=== PATIENT | female | born 1975 | race Caucasian/White ===

== ENCOUNTER 2017-01-23 03:10 | Emergency (ER) | payer MEDICARE, OTHER ==
[~2017-01-23] VITALS: Ht 157.5 cm; Wt 76.0 kg
[2017-01-23 03:15] VITALS: Ht 157.5 cm; Wt 76.0 kg
[2017-01-23] MEDS ORDERED: predniSONE 20 MG TAB PO ONE (04:00)
[2017-01-23] MEDS ORDERED: DIPHENHYDRAMINE 50 MG INJ IM ONE (04:00)
[2017-01-23] MEDS ORDERED: PRED20TA PO (04:10)
[2017-01-23] MEDS ORDERED: BEN25 PO (04:10)
[2017-01-23] MEDS ORDERED: FAMO-96 PO (04:10)
[2017-01-23 04:19] VITALS: BP 121/77; PULSE 66; RESP 20; TEMP 98.3
--- NOTE | 2017-01-23 05:06 | ERD ---
ER Documentation Chief Complaint Date/Time DATE: 01/23/17 TIME: 05:04 Chief Complaint itchy all over no rash after taking laxative HPI 41-year-old female comes with generalized body pruritus that started earlier tonight 3 hours after taking a laxative. She complains of constipation, she took 2 doses of the medication she does not recall the name of and began having itching all over. She states that she denies she did not take anything else new , no new foods, creams, lotions, detergents. She has no trouble swallowing, voice changes or drooling. Patient denies chest pain or shortness of breath. ROS All systems reviewed and are negative except as per history of present illness. Medications Home Meds Active Scripts Diphenhydramine Hcl* (Benadryl*) 25 Mg Cap, 25 MG PO Q6, #30 CAP Prov:HANNAH HOU PA-C 01/23/17 Famotidine* (Pepcid*) 20 Mg Tablet, 20 MG PO BID for 4 Days, TAB Prov:HANNAH HOU PA-C 01/23/17 Prednisone* (Prednisone*) 20 Mg Tab, 40 MG PO DAILY for 4 Days, TAB Prov:HANNAH HOU PA-C 01/23/17 PMhx/Soc History of Surgery: No Hx Neurological Disorder: No Hx Respiratory Disorders: No Hx Cardiac Disorders: No Hx Psychiatric Problems: No Hx Alcohol Use: No Hx Substance Use: No Hx Tobacco Use: No Smoking Status: Never smoker Physical Exam Vitals Vital Signs Date Time Temp Pulse Resp B/P Pulse Ox O2 Delivery O2 Flow Rate FiO2 01/23/17 04:19 98.3 66 20 121/77 97 01/23/17 03:15 98.3 78 20 110/82 97 Physical Exam General: Well-developed, well-nourished. The patient appears in no acute distress. HEENT: Head is normocephalic, atraumatic. No scleral icterus. No angioedema neck: Supple. Nontender. Lungs: Clear to auscultation. Normal air movement. Heart: Regular rate and rhythm. S1 and S2 are normal. No murmurs, gallops, or rubs. Abdomen: Soft, nontender, nondistended. Bowel sounds are normoactive. Extremities: No clubbing or cyanosis. Normal pulses. Moving extremities x 4. No weakness. Neurologic: Alert and oriented 3. No focal deficits. Skin: Normal turgor. No rash or lesions. Results 24 hrs Current Medications Medications (Trade) Dose Ordered Sig/Queta Route PRN Reason Start Time Stop Time Status Last Admin Dose Admin Prednisone (Prednisone) 40 mg ONCE ONCE PO 01/23/17 04:00 01/23/17 04:01 DC 01/23/17 04:11 Diphenhydramine HCl (Benadryl) 25 mg ONCE ONCE IM 01/23/17 04:00 01/23/17 04:01 DC 01/23/17 04:13 Procedures/MDM ED course: Patient was given Benadryl 25 mg IM, prednisone was given orally. Medical decision makin-year-old female presents with generalized pruritus, most consistent with an allergic reaction that is mild. She does not have evidence of urticaria, angioedema, respiratory symptoms or any airway obstructive process. She is stable for outpatient management. Departure Diagnosis: Primary Impression: Allergic reaction Condition: Good Patient Instructions: Allergic Reaction, Drug HANNAH HOU PA-C Jan 23, 2017 05:06
== END 2017-01-23 04:41 | disposition home or self-care (01) ==
LOC: FTE 03:10
DX: L29.9 Pruritus, unspecified (principal)
CPT/HCPCS: 96372; 99284; J1200; J7512

== ENCOUNTER 2017-05-18 14:27 | Emergency (ER) | END 2017-05-19 00:25 | disposition left against medical advice (07) ==